=== PATIENT | male | born 1965 | race Caucasian/White ===

== ENCOUNTER 2021-05-21 08:36 | Outpatient (CLI) | payer BC, SELFPAY ==
--- NOTE | 2021-05-21 11:00 | NEURO_ITS ---
Impression: # Complains of numbness of anterior thigh and pain in leg. # Normal nerve conduction study. # Normal needle/EMG exam. # Clinical correlation recommended. Nerve Conduction Studies Anti Sensory Summary Table Stim Site NR Peak (ms) P-T Amp (?V) Site1 Site2 Delta-P (ms) Dist (cm) Rubén (m/s) Right Sup Fibular Anti Sensory (Ant Lat Mall) 14 cm 3.4 11.4 14 cm Ant Lat Mall 3.4 16.0 47 Right Sural Anti Sensory (Lat Mall) Calf 3.7 2.6 Calf Lat Mall 3.7 16.0 43 Motor Summary Table Stim Site NR Onset (ms) O-P Amp (mV) Site1 Site2 Delta-0 (ms) Dist (cm) Rubén (m/s) Right Peroneal Motor (Vastus Med) Ankle 5.2 1.1 Popit Ankle 8.3 40.0 48 Popit 13.5 0.8 Right Tibial Motor (Abd Garcia Brev) Ankle 5.2 3.4 Knee Ankle 9.6 42.0 44 Knee 14.8 2.9 F Wave Studies NR F-Lat (ms) L-R F-Lat (ms) Right Peroneal (Mrkrs) (EDB) 53.28 Right Tibial (Mrkrs) (Abd Hallucis) 54.22 EMG Side Muscle Nerve Root Ins Act Fibs Amp Dur Recrt Comment Right AntTibialis Dp Br Fibular L4-5 Nml Nml Nml Nml Nml Right Gastroc Tibial S1-2 Nml Nml Nml Nml Nml Right Fibularis Long Sup Br Fibular L5-S1 Nml Nml Nml Nml Nml Right Flex Dig Long Tibial L5-S2 Nml Nml Nml Nml Nml Right Ext Dig Brev Dp Br Fibular L5, S1 Nml Nml Nml Nml Nml Right AbdHallucis MedPlantar S1-2 Nml Nml Nml Nml Nml Right QuadratusFem QuadFemoris L4-5, S1 Nml Nml Nml Nml Nml MTDD
== END 2021-05-21 08:37 | disposition home or self-care (01) ==
LOC: ANHNEURO 08:46
PROVIDERS: PCP Family Medicine; Visit Provider Family Medicine
DX: R20.2 Paresthesia of skin (principal)
CPT/HCPCS: 95886; 95908